=== PATIENT | female | born 1975 | race Caucasian/White ===

== ENCOUNTER 2016-07-22 19:14 | Emergency (ER) | payer OTHER ==
[~2016-07-22] VITALS: Ht 152.4 cm; Wt 88.9 kg
--- NOTE | 2016-07-22 19:14 | NUR ---
Patient was BIBA at this time.
[2016-07-22 19:17] VITALS: BP 118/74
--- NOTE | 2016-07-22 19:27 | NUR ---
Patient to bed 03 via wheelchair per tech.
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
--- NOTE | 2016-07-22 19:50 | NUR ---
PA student evaluating patient at bedside.
[2016-07-22] MEDS ORDERED: LORazepam 1 MG TAB PO ONE (20:15)
--- NOTE | 2016-07-22 20:16 | NUR ---
Dr. Chacon evaluating patient at bedside.
--- NOTE | 2016-07-22 20:25 | NUR ---
Patient being evaluated by physician at bedside.
--- NOTE | 2016-07-22 20:29 | NUR ---
Lab at bedside for blood draw.
--- NOTE | 2016-07-22 20:40 | NUR ---
Father at bedside. Pt placed into a position of comfort. VSS. All needs met.
[2016-07-22 20:43] LABS: BASOPHILS # (AUTO) 0.2 K/uL (0.00-0.22); EOSINOPHILS # (AUTO) 0.4 K/uL (0-0.4); HEMOGLOBIN 12.2 g/dL (12.0-16.0); MONOCYTES # (AUTO) 0.5 K/uL (0.8-1.0); NEUTROPHILS # (AUTO) 6.4 K/uL (1.8-7.7)
[2016-07-22 20:53] LABS: BASOPHILS % (AUTO) 1.6 % (0.0-2.0); EOSINOPHILS % (AUTO) 4.5 % (0.0-4.0); HEMATOCRIT 37.5 % (36-48); LYMPHOCYTES # (AUTO) 2.1 K/uL (2.5-16.5); LYMPHOCYTES % (AUTO) 22.3 % (20.5-51.1); MEAN CORPUSCULAR HEMOGLOBIN 28 pg (27-31); MEAN CORPUSCULAR HGB CONC 33 g/dL (33-37); MEAN CORPUSCULAR VOLUME 85 fL (80-94); NEUTROPHILS % (AUTO) 66.6 % (42.2-75.2); PLATELET COUNT (AUTO) 352 K/uL (140-450); RED CELL DISTRIBUTION WIDTH 15.5 % (11.6-13.7); WHITE BLOOD COUNT (AUTO) 9.6 K/uL (4.8-10.8)
--- NOTE | 2016-07-22 20:55 | NUR ---
RECEIVED REPORT FROM ADDY RAIN FOR TRANSFER OF CARE.
[2016-07-22 21:04] LABS: POTASSIUM 3.6 mmol/L (3.5-5.1)
[2016-07-22 21:05] LABS: ANION GAP 11.5 (8-16); CALCIUM 8.3 mg/dL (8.5-10.1); CARBON DIOXIDE 25.1 mmol/L (21-32); CREATININE 0.8 mg/dL (0.6-1.3)
[2016-07-22 21:06] LABS: ALBUMIN 3.7 g/dL (3.4-5.0); TOTAL BILIRUBIN 0.4 mg/dL (0.0-1.0); TOTAL PROTEIN, SERUM 7.6 g/dL (6.4-8.2)
[2016-07-22 21:22] LABS: CREATINE KINASE MB 0.5 ng/mL (0-3.6)
[2016-07-22 22:49] VITALS: BP 112/68
--- NOTE | 2016-07-22 22:49 | NUR ---
Patient discharged with v/s stable. Written and verbal after care instructions given and explained. Patient alert, oriented and verbalized understanding of instructions. Ambulatory with steady gait*. All questions addressed prior to discharge. ID band removed. Patient advised to follow up with PMD. Rx of ATIVAN given. Patient educated on indication of medication including possible reaction and side effects. Opportunity to ask questions provided and answered.
== END 2016-07-22 22:49 | disposition home or self-care (01) ==
LOC: MED 19:14
DX: F41.9 Anxiety disorder, unspecified (principal); R07.89 Other chest pain
CPT/HCPCS: 36415; 71010; 80053; 82550; 82553; 84484; 85025; 93005; 99285